=== PATIENT | male | born 1950 | race Caucasian/White ===

== ENCOUNTER 2019-02-09 19:11 | Inpatient (IN) | payer OTHER ==
[~2019-02-09] VITALS: Ht 182.9 cm; Wt 72.6 kg
== END 2019-02-17 15:21 | disposition home or self-care (01) | DRG 871 ==
LOC: ER 19:11 → ICU-2 23:32 → SURG 02-15 20:10 → SURH 02-15 20:15 → ICU-2 02-15 20:52 → SURH 02-15 20:53
PROVIDERS: ADMIT Specialist
PROC: 8E0ZXY6 Isolation (ICD-10-PCS; principal; 2019-02-09)
PROC: B246ZZZ Ultrasonography of Right and Left Heart (ICD-10-PCS; 2019-02-10)
PROC: 02HV33Z Insertion of Infusion Device into Superior Vena Cava, Percutaneous Approach (ICD-10-PCS; 2019-02-10)
PROC: 30233R1 Transfusion of Nonautologous Platelets into Peripheral Vein, Percutaneous Approach (ICD-10-PCS; 2019-02-13)
DX: A41.89 Other specified sepsis (principal); R65.21 Severe sepsis with septic shock; A27.89 Other forms of leptospirosis; B53.8 Other malaria, not elsewhere classified; N17.8 Other acute kidney failure; A69.29 Other conditions associated with Lyme disease; D69.49 Other primary thrombocytopenia; I10 Essential (primary) hypertension; Z88.0 Allergy status to penicillin; Z88.2 Allergy status to sulfonamides